=== PATIENT | female | born 1950 | race Caucasian/White ===

== ENCOUNTER 2016-09-20 08:58 | Outpatient (CLI) | payer BC | END 2016-09-20 19:21 | disposition home or self-care (01) | LOC: SMA 08:58 | PROVIDERS: ATTEND Family Medicine | DX: Z12.31 Encounter for screening mammogram for malignant neoplasm of breast (principal) | CPT/HCPCS: 77067; G0202 ==

== ENCOUNTER 2020-01-16 13:50 | Outpatient (CLI) | payer OTHER, MEDICARE | END 2020-01-16 20:52 | disposition home or self-care (01) | LOC: SMA 13:50 | PROVIDERS: ATTEND Family Medicine | DX: Z12.31 Encounter for screening mammogram for malignant neoplasm of breast (principal) | CPT/HCPCS: 77067 ==

== ENCOUNTER 2022-03-31 10:18 | Outpatient (CLI) | payer OTHER, MEDICARE | END 2022-03-31 19:56 | disposition home or self-care (01) | LOC: SMA 10:18 | PROVIDERS: ATTEND Family Medicine | DX: Z12.31 Encounter for screening mammogram for malignant neoplasm of breast (principal) | CPT/HCPCS: 77067 ==